=== PATIENT | male | born 1985 | race Caucasian/White ===

== ENCOUNTER → 2019-02-17 | Outpatient (CLI) | payer OTHER ==
--- NOTE | 2019-02-17 12:54 | REP ---
REASON: Cough and fever. PRIORS: None. FINDINGS: The superior mediastinal structures are midline. The cardiac silhouette is unremarkable in size, shape, and position. The diaphragmatic surfaces of the lungs are regular, and the costophrenic angles are clear. The pulmonary [place] are clear. The imaged osseous structures are intact. IMPRESSION: There is no acute cardiopulmonary disease. Electronically Signed by Macario Valles DO 02/17/2019 02:01 P
== END ==
LOC: M ADAMS 11:30
PROVIDERS: ATTEND Physician Assistant
DX: R05 Cough (principal); R50.9 Fever, unspecified

== ENCOUNTER 2024-01-30 15:13 | Emergency (ER) | payer OTHER ==
[~2024-01-30] VITALS: Ht 182.9 cm; Wt 113.2 kg
[2024-01-30] MEDS: LIDOCAINE 1% MDV 20ML VIAL IM ONE (18:45)
[2024-01-30] MEDS: BOOSTRIX VACCINE (TETANUS/DIPHTH/ACEL. PERTUSSIS) 0.5ML SYR IM.IMMUN ONE (19:50)
[2024-01-30 20:02] VITALS: BP 137/78; TEMP 98.3; O2SAT 99
== END 2024-01-30 20:03 | disposition home or self-care (01) ==
LOC: M ED 15:13
DX: S01.419A Laceration without foreign body of unspecified cheek and temporomandibular area, initial encounter (principal); W22.8XXA Striking against or struck by other objects, initial encounter; Y92.828 Other wilderness area as the place of occurrence of the external cause; Y93.89 Activity, other specified; Y99.9 Unspecified external cause status; Z23 Encounter for immunization; Z91.048 Other nonmedicinal substance allergy status